=== PATIENT | male | born 1970 | race Caucasian/White ===

== ENCOUNTER 2021-12-30 05:30 | Day surgery (SDC) | payer MEDICAID ==
[2021-12-28 11:06] LABS: BASOPHILS # (AUTO) 0.1 X10'3 (0-0.2); EOSINOPHILS # (AUTO) 0.3 X10'3 (0-0.9); LYMPHOCYTES % (AUTO) 27.2 % (21-51); MEAN CORPUSCULAR HEMOGLOBIN 29.5 PG (27.0-31.0); MEAN CORPUSCULAR HGB CONC 33.5 g/dL (33.0-36.5); MEAN CORPUSCULAR VOLUME 88.1 FL (78-98); MEAN PLATELET VOLUME 9.3 FL (7.4-10.4); MONOCYTES # (AUTO) 0.8 X10'3 (0-0.9); MONOCYTES % (AUTO) 11.3 % (2-12); NEUTROPHILS # (AUTO) 4.1 X10'3 (1.8-7.7); NEUTROPHILS % (AUTO) 56.5 % (42-75); PRE OP HEMATOCRIT 39.6 % (42.0-52.0); PRE OP HEMOGLOBIN 13.3 g/dL (14.0-17.9); PRE OP PLATELET COUNT 320 X10'3 (140-440); RED CELL DISTRIBUTION WIDTH 14.3 % (11.5-14.5)
[2021-12-28 11:17] LABS: ALBUMIN 3.4 G/DL (3.4-5.0); ALBUMIN/GLOBULIN RATIO 0.9 (1.1-1.5); ALKALINE PHOSPHATASE 55 IU/L (46-116); BLOOD UREA NITROGEN 8 MG/DL (7-18); BUN/CREATININE RATIO 8.8 (5.4-32.0); CALCIUM 8.9 MG/DL (8.5-10.1); CHLORIDE 104 MMOL/L (99-107); CREATININE 0.91 MG/DL (0.60-1.10); PRE OP ALT 17 U/L (30-65); PRE OP ANION GAP 7 (8-16); PRE OP AST 14 U/L (10-37); PRE OP BILIRUB, TOTAL 0.4 MG/DL (0.0-1.0); PRE OP GLUCOSE 118 MG/DL (70-104); PRE OP POTASSIUM 4.7 MMOL/L (3.4-5.1); PRE OP SODIUM 140 MMOL/L (135-145); TOTAL CARBON DIOXIDE 28.9 MMOL/L (24-32); TOTAL PROTEIN 7.3 G/DL (6.4-8.2); eGFR 88 ML/MIN
[2021-12-30] VITALS (9 sets, daily range): BP systolic 101–134; BP diastolic 74–97
[~2021-12-30] VITALS: Ht 182.9 cm; Wt 109.3 kg
[~2021-12-30 05:30] MED LIST: ALBU18HF2 INH; BECL7.3A INH; CYCL-1 PO; DICL100G30 TOP; DULO30CA52 PO; GABA-534 PO; HYDR-3972 PO; IBUP-1985 PO; MONT-40 PO; NICO1PAT41 TOP; OMEP20CA16 PO; PRAZ5CAP PO; ceFAZolin inj. 2,000 MG in dextrose 5%-water 100 ML IV ONE; famotidine 20mg tablet PO ONE; ringers solution, lacted 1,000 ML IV SCH; vancomycin 1,500 MG in NS 300ml IV soln IV ONE
[2021-12-30] MEDS ORDERED: BUPIVAcaine 0.5% inj/PF 30 ML ONE (06:38)
[2021-12-30] MEDS ORDERED: midazolam 1 mg/ML 2ml injection ONE (07:12)
[2021-12-30] MEDS ORDERED: fentaNYL/PF 50MCG/1 ML 2ML syringe ONE ×2 (07:12→07:36)
[2021-12-30] MEDS ORDERED: sugammadex 200mg/2ml injection IV ONE (08:04)
--- NOTE | 2021-12-30 08:05 | NUR ---
Received from OR via BED, accompanied by Anesthesiologist and report given by Anesthesiologist. PATIENT WAKING UP, NO S/S OF PAIN, V/S WNL, SCD ON, 20G TO RUE, DRESSING TO POSTERIOR BUTTOCK REGION CDI W/ NO S/S OF COMPLICATIONS.
[2021-12-30] MEDS ORDERED: BUPIVAcaine 0.5% inj/PF 30 ml vial IJ ONE (08:10)
[2021-12-30] MEDS ORDERED: morphine 2 MG/ML inj. syringe IV PRN (08:15)
[2021-12-30] MEDS ORDERED: meperidine/PF 25mg/ml syringe IV PRN ×3 (08:15)
[2021-12-30] MEDS ORDERED: proCHLORperazine 10 MG/2 ml inj IV PRN (08:15)
[2021-12-30] MEDS ORDERED: ringers solution, lacted 1,000 ML IV SCH (08:15)
[2021-12-30] MEDS ORDERED: morphine 4 MG/ML inj SYRINge IV PRN (08:15)
[2021-12-30] MEDS ORDERED: ondansetron/PF 4mg/2ml inj IV PRN (08:15)
[2021-12-30] MEDS ORDERED: ipratropium/albuterol 3ml nebule IH ONE (08:20)
--- NOTE | 2021-12-30 09:05 | NUR ---
PATIENT A&OX4, DENIES PAIN, V/S WNL, SCD OFF, 20G TO RUE D/C, DRESSING TO POSTERIOR BUTTOCK REGION CDI W/ NO S/S OF COMPLICATIONS. . I HAVE REVIEWED D/C INSTRUCTIONS WITH PATIENT AND SISTER and they have verbalized understanding patient d/c home with all belongings and family gave transport home.
== END 2021-12-30 09:05 | disposition home or self-care (01) ==
LOC: PAS 05:30
PROVIDERS: ATTEND Surgery
DX: L05.01 Pilonidal cyst with abscess (principal); L73.2 Hidradenitis suppurativa; E11.9 Type 2 diabetes mellitus without complications; K21.9 Gastro-esophageal reflux disease without esophagitis; G89.29 Other chronic pain; E78.5 Hyperlipidemia, unspecified; J45.909 Unspecified asthma, uncomplicated; F32.A Depression, unspecified; F41.9 Anxiety disorder, unspecified; E66.9 Obesity, unspecified; Z68.32 Body mass index [BMI] 32.0-32.9, adult; Z20.822 Contact with and (suspected) exposure to COVID-19; Z79.899 Other long term (current) drug therapy; Z98.890 Other specified postprocedural states; Z87.891 Personal history of nicotine dependence
CPT/HCPCS: 10080; 36415; 71046; 80053; 82948; 85025; 85651; 86140; 87635; 93005; 94640; C9803; J0690; J2250; J3010; J3370; J3490; J7030; J7040; J7060; J7120; S0020; Z7506; Z7512; A4215; A4618; A6253; A6407; A6446; A6449; A7000

== ENCOUNTER 2021-12-30 20:10 | Emergency (ER) | payer MEDICAID ==
[~2021-12-30] VITALS: Ht 180.3 cm; Wt 109.1 kg
[~2021-12-30 20:10] MED LIST changes: -ceFAZolin inj. 2,000 MG in dextrose 5%-water 100 ML IV ONE; -famotidine 20mg tablet PO ONE; -ringers solution, lacted 1,000 ML IV SCH; -vancomycin 1,500 MG in NS 300ml IV soln IV ONE
[2021-12-30 20:19] VITALS: BP 137/91
== END 2021-12-30 22:27 | disposition left against medical advice (07) ==
LOC: ER 20:11
DX: T81.89XA Other complications of procedures, not elsewhere classified, initial encounter (principal); Z53.21 Procedure and treatment not carried out due to patient leaving prior to being seen by health care provider; Y83.8 Other surgical procedures as the cause of abnormal reaction of the patient, or of later complication, without mention of misadventure at the time of the procedure; Y92.89 Other specified places as the place of occurrence of the external cause